=== PATIENT | female | born 1975 | race Two or more races ===

== ENCOUNTER 2025-06-06 00:41 | Inpatient (IN) | payer MEDICARE, MEDICAID, SELFPAY ==
[2025-06-06] VITALS (11 sets, daily range): BP systolic 110–157; BP diastolic 66–95; PULSE 62–134; RESP 16–24; TEMP 36.3–40.1; O2SAT 95–100; BMI 41.5; BMI 41.3
--- NOTE | 2025-06-06 00:54 | XR_ITS ---
Examination: AP chest single view Technique one AP portable semiupright chest single view Date and time: June 06, 2025 0117 hours INDICATIONS: Chest pain shortness of breath today FINDINGS: Normal heart size. Lungs are clear. The osseous structures are intact. IMPRESSION: No active disease.
--- NOTE | 2025-06-06 00:59 | PD.EDAMS ---
Altered Mental Status RME/HPI General Chief Complaint: Altered Mental Status Stated Complaint: AMS Time Seen by Provider: 06/06/25 00:52 Arrival date/time: 06/06/25 00:41 RME / HPI RME / HPI narrative: This section includes all my notes and documentations, including HPI, PE, and ED course. Morales Deng MD HPI: 49 y/o wheelchair bound female with Hx of MS and Depression presents with altered mental status. She was no acting normal at home and shouting things that made no sense. She is able to communicate headache and severe diffuse pain. No other complaints. ROS: All negative except as documented in HPI. Physical Exam: General: Alert but agitated with flailing arms and legs. Fever noted. Eyes: Conjunctivae and lids clear. EOMI. PERRL. ENT: No nasal congestion. Pharynx normal. Tympanic membrane normal bilaterally. Neck: Supple. No carotid bruit. No JVD. Heart: Sinus tachycardia noted. Lungs: No respiratory distress. Good air movement. No severe rhonchi, wheezing, rales. Chest: Equivocal tenderness, difficult to localize. Abdomen: Soft with equivocal tenderness, difficult to localize. Normal bowel sounds. No distension. No rebound or guarding. Back: No CVA tenderness. Legs: No clubbing, cyanosis, edema. Skin: Warm and dry. Neuro: Cranial Nerves II-XII grossly intact. No obvious peripheral motor deficits. I reviewed all diagnostic test results: My interpretation of the EKG is: Sinus rhythm with no acute ST?T changes. My interpretation of the chest x-ray is no acute findings. My review of the Chest/Abdomen/Pelvis CT report is: NAD. My review of the Head/Brain CT report is: NAD. Blood tests remarkable for ESR 28, lactic acid 3.2. UA showed positive nitrite, positive leukocyte Estrace, 74 RBC, 1737 WBC, and 4+ bacteria. Covid/Influenza: Negative. At this point, diagnoses include: UTI, Sepsis. Treatment here included: Vancomycin 2G, IVF, Zofran 4 mg, SoluMedrol 125 mg, Toradol 30 mg, cefepime 2 g, and vancomycin 2 g. Some improvement noted. 0329: I discussed the case with our hospitalist. About the presentation and exam and diagnostics and treatments here. And need of further care in the hospital. Will accept the patient. Morales Deng MD Related Data Home Medications ?Medication ?Instructions ?Recorded ?Confirmed glatiramer 40 mg/mL subcutaneous 40 mg SQ 3 X WEEKLY #0 ea 04/15/16 syringe (Copaxone) vortioxetine 20 mg tablet 20 mg PO QDAY #0 tabs 04/15/16 (Trintellix) Allergies Allergy/AdvReac Type Severity Reaction Status Date / Time Sulfa (Sulfonamide Allergy Severe Verified 04/15/16 22:16 Antibiotics) Review of Systems Review of Systems Systems Reviewed: All systems reviewed, normal except as documented Past Medical History Past Medical History NEUROLOGIC: Positive Multiple Sclerosis GASTROINTESTINAL: Positive Obesity PSYCHO/SOCIAL: Positive Depression Surgical History SURGICAL: Positive Section ED Exam Narrative Physical exam: Refer to HPI above Course Course Course Narrative: CXR is ordered for determining the etiology of shortness of breath. Quality Measures none Orders Category Date Time Status Bedside COVID-19 Antigen Test NOW Care 06/06/25 00:52 Active Bedside Influenza A&B Antigen Test NOW Care 06/06/25 00:52 Completed COVID-19 Screening Questionnaire NOW Care 06/06/25 04:14 Active Decision to Admit X1 Care 06/06/25 04:14 Completed EKG (ED ONLY) *Do not use* NOW Care 06/06/25 01:01 Completed Saline [Insert IV] NOW Care 06/06/25 00:52 Active Straight [In and Out Catheter] X1 Care 06/06/25 00:[address] chest abdomen pelvis wo Stat Exams 06/06/25 01:[address] head/brain wo con Stat Exams 06/06/25 01:01 Taken EKG (ED Only) Stat Exams 06/06/25 01:01 Draft XR chest 1V portable Stat Exams 06/06/25 00:54 Taken Ammonia Stat Lab 06/06/25 00:50 Completed BNP [B-Type Natriuretic Peptide] Stat Lab 06/06/25 00:50 Completed Bilirubin,Direct Stat Lab 06/06/25 00:50 Completed Blood Culture (Lab) Stat Lab 06/06/25 00:50 Received CBC Stat Lab 06/06/25 00:50 Completed CMP [Comprehensive Metabolic Panel] Stat Lab 06/06/25 00:50 Completed CRP [C-Reactive Protein] Stat Lab 06/06/25 00:50 Completed ESR [Sed Rate (ESR)] Stat Lab 06/06/25 00:50 Completed Free T4 (Free Thyroxine) Stat Lab 06/06/25 00:50 Completed HCG Qualitative,Urine Stat Lab 06/06/25 01:05 Completed HCG,Qualitative Serum Stat Lab 06/06/25 00:50 Completed Lactate (Lactic Acid) Stat Lab 06/06/25 00:50 Completed Lactic Acid, 3 HR Stat Lab 06/06/25 04:15 Ordered Lipase Stat Lab 06/06/25 00:50 Completed Magnesium Stat Lab 06/06/25 00:50 Completed Procalcitonin Stat Lab 06/06/25 00:50 Completed TSH [Thyroid Stimulating Hormone] Stat Lab 06/06/25 00:50 Completed Troponin I Stat Lab 06/06/25 00:50 Completed UA, C/S IF [Urinalysis, C/S if Indicated] Stat Lab 06/06/25 01:05 Completed Acetaminophen Ivpb [Ofirmev Inj] Med 06/06/25 00:53 Discontinued 1,000 mg in 100 ml IV X1 Cefepime Inj [Maxipime Inj] 2 gm Med 06/06/25 00:53 Discontinued SODIUM CHLORIDE 0.9% (Popper) [Ns 0.9% (P)] 50 ml IV X1 Ketorolac Inj [Toradol Inj] Med 06/06/25 00:53 Discontinued 30 mg IVP X1 ONE MethylPREDNISolone.* [SoluMEDROL Inj] Med 06/06/25 00:53 Discontinued 125 mg IVP X1 ONE Morphine Inj Med 06/06/25 01:00 Discontinued 4 mg IVP X1 ONE Ondansetron Inj [Zofran Inj] Med 06/06/25 00:53 Discontinued 4 mg IVP X1 ONE Sodium Chloride 0.9% 1000 ml [Ns] 1,000 ml Med 06/06/25 00:53 Discontinued IV 999 mls/hr Sodium Chloride 0.9% 1000 ml [Ns] 1,000 ml Med 06/06/25 01:00 Discontinued IV 999 mls/hr Sodium Chloride 0.9% 1000 ml [Ns] 1,000 ml Med 06/06/25 01:00 Discontinued IV 999 mls/hr Vancomycin Inj 2,000 mg Med 06/06/25 00:53 Discontinued Sodium Chloride 0.9% 500 ml [Ns] 500 ml IV X1 Vital Signs Vital signs: Vital Signs Temperature 99.4 F 06/06/25 00:44 Pulse Rate 134 H 06/06/25 00:44 Respiratory Rate 24 H 06/06/25 00:44 Blood Pressure 137/88 H 06/06/25 00:44 Pulse Oximetry (%) 96 06/06/25 00:44 Oxygen Delivery Method Room Air 06/06/25 00:44 Altered Mental Status MDM Narrative MDM Narrative:: Scribe Attestation: I, Sophia Gonzales, am scribing for and in the presence of Dr. Deng. Provider Notation: Although this document has been carefully reviewed, there may still be some phonetic and other typographical errors.? These errors are purely grammatical due to imperfections in the software program and should not be construed in any way to? compromise the substance of the patient's medical care during this visit. 49 y/o wheelchair bound female with Hx of MS and Depression presents with altered mental status. She was no acting normal at home and shouting things that made no sense. She is able to communicate headache and severe diffuse pain. No other complaints. Patient data External records reviewed:: [facility] previous records (No prior ED records available for review.) Clinical information provided by:: family (Sister) Social determinants that could affect healthcare access:: mental health (Depression) Patient has the following chronic illnesses:: Multiple Sclerosis, Obesity, Depression How is presenting disease/condition affected by chronic disease/condition?: exacerbated by Evaluation data The following diagnostics were reviewed and interpreted by me:: EKG tracing(s) (My interpretation of the EKG is: Sinus tachycardia (116 bpm) with nonspecific ST-T changes. Morales Deng MD) Lab and/or radiology exams considered but not ordered:: None Interpretation Summary: I reviewed all diagnostic test results: My interpretation of the EKG is: Sinus rhythm with no acute ST?T changes. My interpretation of the chest x-ray is no acute findings. My review of the Chest/Abdomen/Pelvis CT report is: NAD. My review of the Head/Brain CT report is: NAD. Blood tests remarkable for ESR 28, lactic acid 3.2. UA showed positive nitrite, positive leukocyte Estrace, 74 RBC, 1737 WBC, and 4+ bacteria. Covid/Influenza: Negative. Medications / Prescriptions Medications or Prescriptions considered but not ordered:: None Medication administrations:: Medication Administration History Discontinued Medications Cefepime HCl 2 gm/ Sodium (Chloride) 50 mls @ 100 mls/hr IV X1 ONE Stop: 06/06/25 01:22 Last Infusion: 06/06/25 02:00 Dose: Infused Documented By: Admin: 06/06/25 01:30 Dose: 100 mls/hr Documented By: NO Sodium Chloride (Ns) 1,000 mls @ 999 mls/hr IV .Q1H1M ONE Stop: 06/06/25 01:53 Last Infusion: 06/06/25 02:37 Dose: Infused Documented By: Admin: 06/06/25 01:21 Dose: 999 mls/hr Documented By: NO Vancomycin HCl 2,000 mg/ (Sodium Chloride) 500 mls @ 150 mls/hr IV X1 ONE Stop: 06/06/25 04:12 Last Admin: 06/06/25 01:35 Dose: 150 mls/hr Documented By: NO Acetaminophen (Ofirmev Inj) 1,000 mg in 100 mls @ 250 mls/hr IV X1 ONE Stop: 06/06/25 01:16 Last Infusion: 06/06/25 02:36 Dose: Infused Documented By: Admin: 06/06/25 01:21 Dose: 250 mls/hr Documented By: NO Sodium Chloride (Ns) 1,000 mls @ 999 mls/hr IV .Q1H1M ONE Stop: 06/06/25 02:00 Last Infusion: 06/06/25 04:13 Dose: Infused Documented By: Admin: 06/06/25 01:34 Dose: 999 mls/hr Documented By: NO Sodium Chloride (Ns) 1,000 mls @ 999 mls/hr IV .Q1H1M ONE Stop: 06/06/25 02:00 Last Infusion: 06/06/25 04:13 Dose: Infused Documented By: Admin: 06/06/25 01:34 Dose: 999 mls/hr Documented By: NO Ketorolac Tromethamine (Ketorolac Inj 30 Mg/Ml Vial) 30 mg IVP X1 ONE Stop: 06/06/25 00:54 Last Admin: 06/06/25 01:31 Dose: 30 mg Documented By: NO Methylprednisolone Sodium Succinate (Methylprednisolone Sod Succ 62.5 Mg/Ml 2ml Vial) 125 mg IVP X1 ONE Stop: 06/06/25 00:54 Last Admin: 06/06/25 01:22 Dose: 125 mg Documented By: NO Morphine Sulfate (Morphine Sulf Inj 10 Mg/Ml Vial) 4 mg IVP X1 ONE Stop: 06/06/25 01:01 Last Admin: 06/06/25 01:32 Dose: 4 mg Documented By: NO Ondansetron HCl (Ondansetron Inj 2 Mg/Ml Inj 2 Ml) 4 mg IVP X1 ONE; Protocol Stop: 06/06/25 00:54 Last Admin: 06/06/25 01:32 Dose: 4 mg Documented By: NO At this point, diagnoses include: UTI, Sepsis. Treatment here included: Vancomycin 2G, IVF, Zofran 4 mg, SoluMedrol 125 mg, Toradol 30 mg, cefepime 2 g, and vancomycin 2 g. Consultations Consultation(s) initiated? (list below): Yes Consultation #1 (Physician, Specialty, Details): [id number]: I discussed the case with our hospitalist. About the presentation and exam and diagnostics and treatments here. And need of further care in the hospital. Will accept the patient. Diagnosis Differential diagnosis altered mental status: alcoholic intoxication, altered mental status, delirium, dementia, hypoglycemia, hyponatremia, subarachnoid hemorrhage, sepsis and other (UTI, COVID, pneumonia, influenza, dehydration, electrolyte abnormalities) Most likely diagnosis given after review of the tests above:: Spesis, UTI. Admission Indicated Admission indicated?: indicated Explain why admission is indicated or not indicated:: Sepsis, UTI. Admission Request Was there a request for admission?: Yes Admission Attestation Admission request attestation: Discussed case with Hospitalist service regarding admission. Discussed patients ED course, exam findings, labs, and radiology results. The Hospitalist [agrees] to accept the patient for admission. Disposition Plan Disposition Plan: Admit Critical Care Time Critical Care Time Critical Care Time: Yes Total Critical Care Time (min.): 36 Attestation: Due to a high probability of clinically significant, life threatening deterioration, the patient required my highest level of preparedness to intervene emergently and I personally spent this critical care time directly and personally managing the patient. This critical care time included obtaining a history; examining the patient; ordering and review of studies; arranging urgent treatment with development of a management plan; evaluation of patient's response to treatment; frequent reassessment; and discussions with family and other providers. It was exclusive of separately billable procedures and treating other patients and teaching time. Morales Deng MD Discharge Plan Plan Patient Disposition: Admit Acute Care w/in Hospital Prescriptions/Referrals Prescriptions/Med Rec: No Action vortioxetine [Trintellix] 20 MG tablet 20 mg PO QDAY Qty: 0 glatiramer [Copaxone] 40 MG/1 ML syringe 40 mg SQ 3 X WEEKLY Qty: 0 Referrals: Temporary Provider,ED [Physician] - In 1 week Problem List Clinical Impression: Sepsis, UTI (urinary tract infection) Patient/Caregiver Discharge Instructions Print Language: Honduran Stand Alone Forms: Niya Award Info., Patient Portal Info Letter
--- NOTE | 2025-06-06 01:01 | EKG_ITS ---
[facility] Test Date: 2025-06-06 Pat Name: LOLLY SAMPSON Department: Room: - Gender: Female [employer]: : 1975 Requested By: Morales Mcneill Order Number: [id number] Reading MD: Morales Mcneill Measurements Intervals [place] Rate: 116 P: 56 [place]: 133 QRS: 71 QRSD: 85 T: 55 QT: 321 QTc: 446 Interpretive Statements SINUS TACHYCARDIA NONSPECIFIC ST & T-WAVE ABNORMALITY ABNORMAL RHYTHM ECG No previous ECG available for comparison /store/S0/[id number].pdf
--- NOTE | 2025-06-06 01:01 | XR_ITS ---
Examination: CT brain head without contrast. 2-D sagittal coronal reconstructions Date and time of exam:June 06, 2025, 0207 hours INDICATIONS: Altered mental status today COMPARISON: May 09, 2014 CTDI: vol (mGy):56.40 DLP: (mGycm):1154 Technique: Multiple CT axial sections of the brain have been obtained, 5 mm slice thickness. Contrast has not been administered. 2-D sagittal, coronal reconstructions have been obtained Low dose protocols were performed. One or more of the following dose reduction techniques were used; automated exposure control, adjustment of the mA and/or KV according to patient size, use of iterative reconstruction technique. Findings: No significant ventricular enlargement. Multiple abnormal low density areas in the parietal lobes, for instance axial images 18 through 22 Intra-axial or extra-axial hemorrhage density is not seen. No mass effect or midline shift Basal cisterns are not remarkable. Fourth ventricle is midline. Cranial vault intact. Impression: Negative for acute hemorrhage, mass effect or midline shift Multiple abnormal low-density areas in the parietal lobes as above, differential would include demyelinating disease, areas of chronic ischemic change Consider brain MRI MRA without contrast follow-up
--- NOTE | 2025-06-06 01:01 | XR_ITS ---
Examination: CT chest, without intravenous contrast. CT abdomen, without intravenous contrast. CT pelvis, without intravenous contrast. 2-D sagittal and coronal reconstructions. 3-D reconstructions. Date and time of exam:June 06, 2025 0208 hours INDICATIONS: Chest pain and shortness of breath abdominal pain today CTDI vol (mgy) 21.21. DLP (MGycm)1529. Technique: Multiple CT images, 3.0 mm slice thickness, obtained chest, abdomen, pelvis, with the high-resolution 64 slice scanner.. Sagittal and coronal 2-D reconstructions are obtained. 3-D reconstructions Low dose protocols were performed. One or more of the following dose reduction techniques were used; automated exposure control, adjustment of the mA and/or KV according to patient size, use of iterative reconstruction technique. Findings: No thoracic aortic aneurysmal dilatation Pulmonary artery segments are not enlarged. Trace pericardial effusion. No mediastinal lymphadenopathy. No pneumonia, pulmonary edema or pleural disease Fatty infiltration throughout the liver Possible thickening of the gallbladder wall Spleen not enlarged No pancreatic or adrenal mass No renal or ureteral calculi, no hydronephrosis Aorta normal size Normal appendix. No bowel obstruction Anteverted uterus Urinary Gonzales catheter with urinary bladder wall thickening and pericystic inflammatory change Moderate osteopenia IMPRESSION: No pneumonia, pulmonary edema or pleural disease Recommend hepatobiliary sonography to exclude gallbladder wall thickening Significant cystitis pattern
[2025-06-06 01:18] LABS: Basophils # (Auto) 0.0 Thou/mm3 (0.0-0.2); Basophils % (Auto) 0 % (0-2.5); Eosinophils # (Auto) 0.1 Thou/mm3 (0.0-0.5); Eosinophils % (Auto) 1 % (0-10); Hematocrit 43.1 % (36.0-46.0); Hemoglobin 14.2 g/dL (12.0-16.0); Immature Granulocytes Auto 0.03 Thou/mm3 (0.00-0.00); Lactate (Lactic Acid) 3.2 mMol/L (0.4-2.0); Lymphocytes # (Auto) 0.9 Thou/mm3 (1.0-4.8); Lymphocytes % (Auto) 11 % (10-50); Mean Corpuscular HGB Conc 32.9 g/dl (31.0-37.0); Mean Corpuscular Hemoglobin 29.6 pg (25.0-35.0); Mean Corpuscular Volume 90 fL (80-100); Monocytes # (Auto) 0.1 Thou/mm3 (0.0-0.8); Monocytes % (Auto) 1 % (0-12); Neutrophils # (Auto) 7.3 Thou/mm3 (1.8-7.7); Neutrophils % (Auto) 87 % (37-80); Nucleated Red Blood Cell # 0.00 Thou/mm3 (0.00-0.00); Nucleated Red Blood Cell % 0 /100 WBC (0); Platelet Count 269 Thou/mm3 (140-440); RDW Standard Deviation 43.8 fL (36.4-46.3); Red Blood Count 4.79 Miln/mm3 (4.00-5.20); White Blood Count 8.4 Thou/mm3 (3.6-11.0)
[2025-06-06] MEDS: SODIUM CHLORIDE 0.9% 1000 ML 1,000 ML 999 ML IV ×3 (01:21→01:34)
[2025-06-06] MEDS: ACETAMINOPHEN IVPB 1,000 MG/100 ML VIAL 250 MG IV (01:21)
[2025-06-06] MEDS: MethylPREDNISolone SOD SUCC 62.5 MG/ML 2ML VIAL 125 MG IVP (01:22)
[2025-06-06 01:23] LABS: Collection Type, Urine Clean Catch; HCG Qualitative,Urine Negative
[2025-06-06 01:25] LABS: Bacteria,Urine 4+; Bilirubin,Urine Negative (Negative); Blood,Urine 2+ (Negative); Color,Urine Yellow (Lt Yel-Yel); Culture Indicated,Urine Contaminated; Glucose, Urine Negative (Negative); Ketones,Urine Negative (Negative); Leukocyte Esterase,Urine Positive (Negative); Nitrite,Urine Positive (Negative); PH,Urine 8.0 (5.0-7.0); Protein,Urine 2+ (Neg - Trace); RBC,Urine 74 /hpf (0-3); Specific Gravity,Urine 1.018 (1.001-1.035); Squamous Epithelial Cell,Urine 22 /hpf (0-5); Urobilinogen,Urine Negative mg/dL (0.0-1.0); WBC,Urine 1737 /hpf (0-5)
[2025-06-06 01:25] LABS: Sed Rate (ESR) 28 mm/hr (0-20)
[2025-06-06 01:26] LABS: Clarity,Urine Turbid (Clear/Hazy)
[2025-06-06] MEDS: CEFEPIME INJ 2 GM in SODIUM CHLORIDE 0.9% (Popper) 50 ML IV ×4 (01:30→21:03)
[2025-06-06] MEDS: KETOROLAC INJ 30 MG/ML VIAL IVP (01:31)
[2025-06-06] MEDS: MORPHINE SULF INJ 10 MG/ML VIAL 4 MG IVP (01:32)
[2025-06-06] MEDS: ONDANSETRON INJ 2 MG/ML INJ 2 ML 4 MG IVP (01:32)
[2025-06-06 01:35] LABS: HCG,Qualitative Serum Negative
[2025-06-06] MEDS: Vancomycin Inj 2,000 MG in SODIUM CHLORIDE 0.9% 500 ML 500 ML 150 MG IV (01:35)
[2025-06-06 01:41] LABS: Ammonia < 10 uMol/L (11-32)
[2025-06-06 01:43] LABS: B-Type Natriuretic Peptide < 20 pg/mL (0-100)
[2025-06-06 02:09] LABS: Alanine Aminotransferase 23 U/L (10-49); Albumin, Serum 4.8 gm/dL (3.5-5.0); Albumin/Globulin Ratio 1.8 (1.2-2.2); Alkaline Phosphatase 89 U/L (46-116); Anion Gap 13 (7-16); Aspartate Amino Transferase 26 U/L (0-34); BUN/Creatinine Ratio 14 Ratio (12-20); Bilirubin,Direct 0.2 mg/dL (0.0-0.3); Bilirubin,Total 0.8 mg/dL (0.3-1.2); Blood Urea Nitrogen 11 mg/dL (9-23); C-Reactive Protein 0.7 mg/dL (0.0-0.9); Calcium 9.3 mg/dL (8.3-10.6); Calcium (Corrected) 9.3 mg/dL (8.5-10.1); Carbon Dioxide 23.6 mMol/L (20.0-31.0); Chloride 106 mMol/L (98-107); Creatinine (Component) 0.8 mg/dL (0.6-1.3); Estimated Creatinine Clearance 110.5 mL/min (>60); Free T4 (Free Thyroxine) 1.34 ng/dL (0.89-1.76); Globulin 2.6 gm/dL (2.3-3.5); Glucose 141 mg/dL (74-106); Lipase 43 U/L (12-53); Magnesium 2.0 mg/dL (1.6-2.6); Osmolality,Calculated 286 (275-295); Potassium 3.8 mMol/L (3.4-5.1); Sodium 143 mMol/L (136-145); Thyroid Stimulating Hormone 1.09 uIU/mL (0.55-4.78); Total Protein 7.4 gm/dL (5.7-8.2); Troponin I < 0.002 ng/mL (0.0-0.045); eGFR > 60 See Note
[2025-06-06 02:12] LABS: Procalcitonin 0.24 ng/ml (0.0-0.49)
--- NOTE | 2025-06-06 02:41 | PRELIM_ITS ---
CT scan of the head without intravenous contrast (axial sections with sagittal and coronal reformats). June 06, 2025 0206 hours Clinical History: AMS Comparison: No prior study is available for comparison. Findings: No evidence of intracranial hemorrhage, mass effect or midline shift. There are patchy hypodensities in the periventricular and subcortical white matter in bilateral frontoparietal lobes, which may represent sequelae of demyelinating etiology or chronic ischemia. The ventricles and CSF spaces are unremarkable. The calvarium is unremarkable.There is mild mucosal thickening in the left maxillary sinus. The mastoid air cells and the other visualized paranasal sinuses are clear. Impression: 1. No evidence of intracranial hemorrhage, mass effect or midline shift. 2. Patchy hypodensities in the periventricular and subcortical white matter in bilateral frontoparietal lobes, which may represent sequelae of demyelinating etiology or chronic ischemia. 3. Other findings as described above. Suggest clinical correlation, comparison with prior study and further assess with MRI if clinically indicated. Report Electronically Signed By: Walter Huitron 06/06/2025 2:40:37 AM [EST]
--- NOTE | 2025-06-06 03:10 | PRELIM_ITS ---
CT scan of the chest, abdomen and pelvis without intravenous contrast (axial sections with sagittal and coronal reformats) June 06, 2025 0208 hours Clinical History: AMS, shortness of breath, chest pain and abdominal pain Comparison: None Findings: The evaluation is limited by respiratory motion. Dependent and streaky atelectasis is seen at the lung bases. There is no pleural effusion or pneumothorax. The thoracic aorta demonstrates atheromatous calcification without evidence of aneurysm. No evidence of mediastinal mass or lymphadenopathy. There is a small pericardial effusion. There is hepatomegaly with fatty infiltration. Dependent hyperdensity is identified within the gallbladder, which may represent sludge. No evidence of renal/ureteric calculus or hydroureteronephrosis. The spleen, pancreas, adrenals and kidneys are unremarkable on this noncontrast study. No evidence of bowel obstruction. The appendix is within normal limits (images 235 - 250/342). There are occasional colonic diverticula without evidence of diverticulitis. There is divarication of the rectus muscle with a fat containing umbilical hernia. The urinary bladder is partially distended and shows mild wall thickening; possibility of cystitis cannot be excluded. The uterus and adnexa are unremarkable. There is no abdominal aortic aneurysm. There is no free fluid or free air. Mild degenerative changes are identified in the spine. Please note that evaluation of soft tissue/vascular structures and bowel loops is limited due to absence of IV and oral contrast. Impression: 1. No evidence of segmental lung consolidation or pleural effusion/pneumothorax. 2. No evidence of bowel obstruction. 3. Hepatomegaly with fatty infiltration. 4. Partially distended urinary bladder with mild wall thickening; possibility of cystitis cannot be excluded. 5. Other findings as described above. Suggest clinical correlation and follow up accordingly. Report Electronically Signed By: Walter Huitron 06/06/2025 3:10:42 AM [EST]
[2025-06-06 04:15] LABS: Reflex Lactate? Y
--- NOTE | 2025-06-06 04:28 | ESHP_ITS ---
Documentation for date of: 06/06/25 HPI History of Present Illness History of present illness: 49-year-old wheelchair-bound female with history of multiple sclerosis (MS) and depression presents from home with acute altered mental status. Per sister, patient was acting abnormally, shouting nonsensical statements, and appeared confused earlier today. She also developed generalized shaking, muscle cramping, and repeated episodes of vomiting. Onset was around 11:00 AM. Prior to this, she was at her baseline mentation and functional status. At home, a forehead thermometer recorded a temperature of ~101?F. She had no recent MS flares in the past 4?5 years and has been adherent to Ocrevus infusions. She reported feeling different from her typical MS symptoms. No chest pain, shortness of breath, neck stiffness, or new focal neurological deficits. No dysuria or urinary frequency noted, but she wears adult diapers and spends most of the day in her wheelchair. No indwelling urinary catheter. On arrival to ED, she was febrile to 104.2?F, tachycardic to 134 bpm, BP 157/88. Oxygen requirement noted on nasal cannula. She was initially altered but is now back to her baseline mentation after treatment in ED. Currently has an indwelling Gonzales catheter placed in ED. ROS: Positive: Fever, vomiting, generalized weakness, AMS (resolved), suprapubic tenderness. Negative: Dysuria, flank pain, diarrhea, chest pain, SOB, headache, photophobia, seizures. PMH: * Multiple sclerosis; wheelchair-bound, chronic paraplegia * Depression PSH: * None reported Home Medications: * Ocrevus infusion (schedule per neuro) * Baclofen * Vitamin D * [Depression medication unknown] med recs pending Allergies: * Sulfa drugs Family History: * Cancer, arthritis, hypertension, DM Exam Vital Signs Temp Pulse Resp BP Pulse Ox O2 Del Method O2 Flow Rate 98.3 F 100 20 130/94 H 95 Nasal Cannula 2 06/06/25 04:14 06/06/25 04:14 06/06/25 04:14 06/06/25 04:14 06/06/25 04:18 06/06/25 04:14 06/06/25 04:18 Narrative Exam General: Alert, oriented ?3, no acute distress HEENT: PERRL, EOMI, no meningismus Neck: Supple, no lymphadenopathy, no JVD CV: Tachycardic, regular rhythm, no murmurs/rubs/gallops Lungs: Clear to auscultation bilaterally, no wheezing/rhonchi/rales Abdomen: Soft, mild suprapubic tenderness, no guarding or rebound Extremities: 4+ pitting edema in bilateral lower extremities Neuro: * Complete loss of motor function waist down (baseline) * RUE: 1/5 strength (baseline) * LUE: 4/5 strength (baseline) * CN II?XII intact, sensation grossly intact Skin: Warm, dry, no rash Psych: Cooperative, normal mood and affect Results: Labs 06/06/25 04:40 06/06/25 04:40 Labs: Short CBC 06/06/25 Range/Units 00:50 WBC 8.4 (3.6-11.0) Thou/mm3 Hgb 14.2 (12.0-16.0) g/dL Hct 43.1 (36.0-46.0) % Plt Count 269 (140-440) Thou/mm3 BMP 06/06/25 00:50 Sodium 143 Potassium 3.8 Chloride 106 Carbon Dioxide 23.6 BUN 11 Creatinine 0.8 Glucose 141 H Calcium 9.3 Cardiac Enzymes 06/06/25 Range/Units 00:50 Troponin I < 0.002 (0.0-0.045) ng/mL Liver Function 06/06/25 Range/Units 00:50 Total Bilirubin 0.8 (0.3-1.2) mg/dL Direct Bilirubin 0.2 (0.0-0.3) mg/dL AST 26 (0-34) U/L ALT 23 (10-49) U/L Alkaline Phosphatase 89 (46-116) U/L Albumin 4.8 (3.5-5.0) gm/dL Urine 06/06/25 Range/Units 01:05 Urine Color Yellow (Lt Yel-Yel) Urine Clarity Turbid A (Clear/Hazy) Urine pH 8.0 H (5.0-7.0) Ur Specific [place] 1.018 (1.001-1.035) Urine Protein 2+ A (Neg - Trace) Urine Glucose (UA) Negative (Negative) Quality Measures Quality Measures VTE prophylaxis Medications Home Medications and Allergies Home Medications ?Medication ?Instructions ?Recorded ?Confirmed ?Type glatiramer 40 mg/mL subcutaneous 40 mg SQ 3 X WEEKLY # 0 ea 04/15/16 History syringe ([place]) vortioxetine 20 mg tablet 20 mg PO QDAY #0 tabs History (Trintellix) Allergies Allergy/AdvReac Type Severity Reaction Status Date / Time Sulfa (Sulfonamide Allergy Severe Verified 04/15/16 22:16 Antibiotics) Visit Medications Acetaminophen (Acetaminophen 325 Mg Tablet) 650 mg PO Q6H PRN PRN Reason: Fever >101.5 Stop: 07/06/25 04:11 Acetaminophen (Acetaminophen 325 Mg Tablet) 650 mg PO Q6H PRN PRN Reason: PAIN SCALE 1-3 (mild Stop: 07/06/25 04:11 Hydrocodone Bitart/Acetaminophen (Hydrocodone/Apap 5/325 Tablet) 1 tab PO Q4HR PRN PRN Reason: PAIN SCALE 4-6 (Moderate Stop: 06/11/25 04:11 Enoxaparin Sodium (Enoxaparin Sod Inj 40 Mg/0.4 Ml Syringe) 40 mg SC QDAY FEMI Stop: 06/20/25 08:59 Sodium Chloride (Ns) 1,000 mls @ 100 mls/hr IV .Q10H FEMI Stop: 07/06/25 04:14 Cefepime HCl 2 gm/ Sodium (Chloride) 50 mls @ 100 mls/hr IV Q8HR FEMI Stop: 06/13/25 05:59 Ondansetron HCl (Ondansetron Inj 2 Mg/Ml Inj 2 Ml) 4 mg IVP Q6H PRN; Protocol PRN Reason: NAUSEA OR VOMITING Stop: 07/06/25 04:11 Pantoprazole Sodium (Pantoprazole 40 Mg Tablet) 40 mg PO QDAY FEMI Stop: 07/06/25 08:59 Sennosides (Senna Tablet) 1 tab PO QDAY PRN; Protocol PRN Reason: constipation Stop: 07/06/25 04:11 Discontinued Medications Cefepime HCl 2 gm/ Sodium (Chloride) 50 mls @ 100 mls/hr IV X1 ONE Stop: 06/06/25 01:22 Last Infusion: 06/06/25 02:00 Dose: Infused Sodium Chloride (Ns) 1,000 mls @ 999 mls/hr IV .Q1H1M ONE Stop: 06/06/25 01:53 Last Infusion: 06/06/25 02:37 Dose: Infused Vancomycin HCl 2,000 mg/ (Sodium Chloride) 500 mls @ 150 mls/hr IV X1 ONE Stop: 06/06/25 04:12 Last Admin: 06/06/25 01:35 Dose: 150 mls/hr Acetaminophen (Ofirmev Inj) 1,000 mg in 100 mls @ 250 mls/hr IV X1 ONE Stop: 06/06/25 01:16 Last Infusion: 06/06/25 02:36 Dose: Infused Sodium Chloride (Ns) 1,000 mls @ 999 mls/hr IV .Q1H1M ONE Stop: 06/06/25 02:00 Last Infusion: 06/06/25 04:13 Dose: Infused Sodium Chloride (Ns) 1,000 mls @ 999 mls/hr IV .Q1H1M ONE Stop: 06/06/25 02:00 Last Infusion: 06/06/25 04:13 Dose: Infused Ketorolac Tromethamine (Ketorolac Inj 30 Mg/Ml Vial) 30 mg IVP X1 ONE Stop: 06/06/25 00:54 Last Admin: 06/06/25 01:31 Dose: 30 mg Methylprednisolone Sodium Succinate (Methylprednisolone Sod Succ 62.5 Mg/Ml 2ml Vial) 125 mg IVP X1 ONE Stop: 06/06/25 00:54 Last Admin: 06/06/25 01:22 Dose: 125 mg Morphine Sulfate (Morphine Sulf Inj 10 Mg/Ml Vial) 4 mg IVP X1 ONE Stop: 06/06/25 01:01 Last Admin: 06/06/25 01:32 Dose: 4 mg Ondansetron HCl (Ondansetron Inj 2 Mg/Ml Inj 2 Ml) 4 mg IVP X1 ONE; Protocol Stop: 06/06/25 00:54 Last Admin: 06/06/25 01:32 Dose: 4 mg Assessment & Plan Plan 49F w/ PMH MS (wheelchair-bound, chronic paraplegia) & depression p/w fever (Tmax 104.2), transient AMS, vomiting; UA & CT bladder wall thickening -> acute complicated UTI w/ sepsis, lactate 3.2; now AO?4, on NC, started on cefepime 2 g q8h, cultures pending. #Sepsis secondary to #Urinary tract infection Meets sepsis criteria with fever (Tmax 104.2?F), tachycardia, AMS, and lactate 3.2 mmol/L. Most likely urinary source given UA with pyuria, bacteriuria, hematuria, suprapubic tenderness, and CT finding of bladder wall thickening. Gonzales was placed in ED for management, not present prior to arrival. Plan: * Continue cefepime 2 g IV q8h for broad gram-negative coverage, including Pseudomonas * Maintain MAP >65 mmHg; monitor for hypotension * Repeat lactate q4?6h until <2 mmol/L * Follow blood and urine cultures; narrow antibiotics per sensitivities * Monitor for urinary retention after Gonzales removal * Strict I/O, daily weights * Antipyretics PRN * Consider ID consult if no improvement within 48h # Toxic metabolic encephalopathy Acute AMS at presentation, now resolved after fluids, antipyretics, and antibiotics. Most likely secondary to sepsis from urinary source. CT brain without acute findings; no focal neuro deficits beyond MS baseline. Plan: * Treat underlying infection as above * Avoid sedatives unless absolutely necessary #Multiple sclerosis Wheelchair-bound with baseline paraplegia (RUE 1/, LUE 4/). No flares in past 4?5 years. Plan: * Continue baclofen * Ocrevus infusion due next week * Monitor for new deficits; neuro consult if any change #Localized edema Chronic BLE edema, likely due to immobility +/- venous insufficiency. Plan: * Elevate legs * Monitor fluid status #Dehydration Due to vomiting, fever, poor PO intake; improved with IV fluids in ED. Plan: * Continue maintenance IV fluids until oral intake adequate * Daily BMP * Replete electrolytes PRN Health Maintenance: Disposition: Admit to medicine, telemetry Feeding: Regular diet as tolerated Thromboprophylaxis: Enoxaparin 40 mg SC daily GI prophylaxis: ppi Code Status: Full ----- Plan discussed with attending physician Dr. Angélica Mcconnell MD PGY-1 Internal Medicine Attending Provider Attestation/Addendum I attest that I was physically present for the evaluation, physical examination, lab and imaging review of the patient with the residents. I discussed the case with the residents and agree with the findings and plans of care as documented above. After examination of the patient and review of the clinical data I feel that this patient needs admission to the hospital for further treatment/evaluation. Patient is a 49 years old female with past medical history of multiple sclerosis, and depression who presented to the ED with complaint of altered mental status. Patient is wheelchair-bound at baseline. As per her sister at baseline, patient appeared confused and started acting strange at home. She was also having shaking, muscle cramping and episodes of vomiting. Denied any dysuria or urinary frequency, shortness of breath. She noted to have fever at home with temperature around 101 ?F. In the ED, she was febrile with temperature of 104.2 ?F, was tachycardic with heart rate of 134, tachypneic with respiratory rate of 24 and mildly hypertensive blood pressure of 137/88. Lab results show WBC of 14.0 with neutrophilic predominance. ESR was 28 and lactic acid 3.2. Urinalysis was done, showed 1737 WBCs, positive leukocyte esterase and nitrite, turbid urine with 4+ bacteria. Chest x-ray was done did not show any infiltrates, head CT was negative for acute hemorrhage, mass effect or midline shift. CT abdomen/pelvis showed partially distended urinary bladder with mild wall thickening possibility of cystitis, hepatomegaly with fatty infiltration. Patient's mentation had improved at the time of examination, alert and oriented, able to answer questions and follow commands appropriately. She had suprapubic tenderness, bilateral pedal edema. We will admit the patient for management of sepsis secondary to UTI. We will start her on broad-spectrum IV antibiotics with cefepime 2 grams every 8 hours. Patient received IV fluid bolus in the ED, we will continue with gentle IV hydration. Cultures have been ordered. Harley Lindsay MD
[2025-06-06 04:56] LABS: Lactic Acid, 3 HR 1.2 mMol/L (0.4-2.0)
[2025-06-06 05:00] LABS: Basophils # (Auto) 0.0 Thou/mm3 (0.0-0.2); Basophils % (Auto) 0 % (0-2.5); Eosinophils # (Auto) 0.0 Thou/mm3 (0.0-0.5); Eosinophils % (Auto) 0 % (0-10); Hematocrit 39.5 % (36.0-46.0); Hemoglobin 13.2 g/dL (12.0-16.0); Immature Granulocytes Auto 0.04 Thou/mm3 (0.00-0.00); Lymphocytes # (Auto) 0.6 Thou/mm3 (1.0-4.8); Lymphocytes % (Auto) 4 % (10-50); Mean Corpuscular HGB Conc 33.4 g/dl (31.0-37.0); Mean Corpuscular Hemoglobin 30.2 pg (25.0-35.0); Mean Corpuscular Volume 90 fL (80-100); Monocytes # (Auto) 0.5 Thou/mm3 (0.0-0.8); Monocytes % (Auto) 4 % (0-12); Neutrophils # (Auto) 12.8 Thou/mm3 (1.8-7.7); Neutrophils % (Auto) 92 % (37-80); Nucleated Red Blood Cell # 0.00 Thou/mm3 (0.00-0.00); Nucleated Red Blood Cell % 0 /100 WBC (0); Platelet Count 237 Thou/mm3 (140-440); RDW Standard Deviation 43.6 fL (36.4-46.3); Red Blood Count 4.37 Miln/mm3 (4.00-5.20); White Blood Count 14.0 Thou/mm3 (3.6-11.0)
[2025-06-06 05:21] LABS: Anion Gap 11 (7-16); BUN/Creatinine Ratio 12 Ratio (12-20); Blood Urea Nitrogen 7 mg/dL (9-23); Calcium 8.4 mg/dL (8.3-10.6); Carbon Dioxide 23.6 mMol/L (20.0-31.0); Chloride 110 mMol/L (98-107); Creatinine (Component) 0.6 mg/dL (0.6-1.3); Estimated Creatinine Clearance 147.4 mL/min (>60); Glucose 152 mg/dL (74-106); Magnesium 2.0 mg/dL (1.6-2.6); Osmolality,Calculated 289 (275-295); Potassium 3.4 mMol/L (3.4-5.1); Sodium 145 mMol/L (136-145); eGFR > 60 See Note
[2025-06-06] MEDS: SODIUM CHLORIDE 0.9% 1000 ML 1,000 ML 100 ML IV ×2 (06:07→15:00)
[2025-06-06] MEDS: ENOXAPARIN SOD INJ 40 MG/0.4 ML SYRINGE SC (08:59)
[2025-06-06] MEDS: PANTOPRAZOLE 40 MG TABLET PO (09:00)
--- NOTE | 2025-06-06 10:46 | CHAP ---
Patient expressed gratitude for visit and prayer.
--- NOTE | 2025-06-06 15:01 | PC.SS ---
Patient Florencia Bean is a 49 Year old female admitted for AMS and Fever. SS met with patient at bedside to discuss discharge plan and verify demographic information. Patient reports she lives at home with her , Sean Cruz who she reports is surrogate decision maker, [phone]. Patient is wheelchair-bound with history of multiple sclerosis (MS) and depression. Patient reports her assists her with her ADL's. PCP is Josy Killian and Pharmacy of choice is [facility]. At time of discharge the patient wishes to return back home. Family will provide transportation. Next of kin: , Sean Cruz Discharge Plan: Home
--- NOTE | 2025-06-06 16:20 | PD.RESEVENT ---
Documentation for date of: 06/06/25 Event Note Event Note: Rapid Response Room: 266 Time: Reason for Call: Patient Presentation: Events: Assessment: New orders:
--- NOTE | 2025-06-06 21:07 | ESPR_ITS ---
<Statement entered by Micky Cheatham MD - 06/08/25 21:08> Patient was examined and case was reviewed with team including attending physician. Note reviewed, I agree with most of its contents and agree with the patient's care. Micky Cheatham MD PGY-2 Documentation for date of: 06/06/25 Subjective Subjective Interval history: Patient was seen in emergency department this morning. Patient is alert and oriented x3. Patient reported that previous multiple sclerosis flares typically began with weakness in the right toe, progressed up the right leg, and then spread to the left leg. Patient has not experienced a flare in the past five years. She is currently receiving Ocrevus infusions for multiple sclerosis, with her next infusion scheduled for next week. No complaints at this time. Exam Vital Signs Temp Pulse Resp BP Pulse Ox O2 Del Method O2 Flow Rate 97.7 F 62 16 110/66 99 Room Air 3 06/06/25 20:00 06/06/25 20:00 06/06/25 20:00 06/06/25 20:00 06/06/25 20:00 06/06/25 20:00 06/06/25 16:00 Narrative Exam Physical Exam General: Awake and in no acute distress. Conversational and non-toxic appearing. HEENT: Normocephalic, atraumatic, mucous membranes moist. Heart: Regular rate and rhythm, no murmurs. Lungs: Clear to auscultation with no wheezing or crackles. Abdomen: Soft, nondistended, nontender. No guarding or rebound tenderness. Mild suprapubic tenderness. Neurologic: Alert and oriented x3, complete loss of motor function waist down (baseline). Extremities: 4+ pitting edema in bilateral lower extremities. Skin: No rash or ecchymoses. Objective Labs 06/07/25 04:39 06/07/25 04:39 Labs: Laboratory Results - last 24 hr 06/06/25 06/06/25 06/06/25 00:50 01:05 04:40 WBC 8.4 14.0 H D RBC 4.79 4.37 Hgb 14.2 13.2 Hct 43.1 39.5 MCV 90 90 MCH 29.6 30.2 MCHC 32.9 33.4 RDW Std Deviation 43.8 43.6 Plt Count 269 237 D Neut % (Auto) 87 H 92 H Lymph % (Auto) 11 4 L [place] % (Auto) 1 4 Eos % (Auto) 1 0 Baso % (Auto) 0 0 Neut # (Auto) 7.3 12.8 H Lymph # (Auto) 0.9 L 0.6 L [place] # (Auto) 0.1 0.5 Eos # (Auto) 0.1 0.0 Baso # (Auto) 0.0 0.0 Immature Gran # (Auto) 0.03 H 0.04 H Absolute Nucleated RBC 0.00 0.00 Immature Gran % 0 0 Nucleated RBC % 0 0 ESR 28 H Sodium 143 145 Potassium 3.8 3.4 Chloride 106 110 H Carbon Dioxide 23.6 23.6 Anion Gap 13 11 BUN 11 7 L Creatinine 0.8 0.6 Estim Creat Clear Calc 110.5 147.4 eGFR > 60 > 60 BUN/Creatinine Ratio 14 12 Glucose 141 H 152 H Calculated Osmolality 286 289 Lactic Acid 3.2 H 1.2 Calcium 9.3 8.4 Corrected Calcium 9.3 Magnesium 2.0 2.0 Total Bilirubin 0.8 Direct Bilirubin 0.2 AST 26 ALT 23 Alkaline Phosphatase 89 Ammonia < 10 L Troponin I < 0.002 C-Reactive Prot, Quant 0.7 B-Natriuretic Peptide < 20 Total Protein 7.4 Albumin 4.8 Globulin 2.6 Albumin/Globulin Ratio 1.8 Lipase 43 Procalcitonin 0.24 TSH 1.09 Free T4 1.34 HCG, Qual Negative Ur Collection Type Clean Catch Urine Color Yellow Urine Clarity Turbid A Urine pH 8.0 H Ur Specific [place] 1.018 Urine Protein 2+ A Urine Glucose (UA) Negative Urine Ketones Negative Urine Blood 2+ A Urine Nitrite Positive Urine Bilirubin Negative Urine Urobilinogen (Auto) Negative Ur Leukocyte Esterase Positive Urine RBC 74 H Urine WBC 1737 H Ur Squamous Epith Cells 22 H Urine Bacteria 4+ A Ur Culture Indicated? Contaminated Urine HCG, Qual Negative Quality Measures Quality Measures VTE prophylaxis Assessment & Plan Assessment Current Active Medications: Generic Name Dose Route Start Last Admin Trade Name Freq PRN Reason Stop Dose Admin Acetaminophen 650 mg 06/06/25 04:12 Acetaminophen 325 Mg Tablet PO 07/06/25 04:11 Q6H PRN Fever >101.5 Acetaminophen 650 mg 06/06/25 04:12 Acetaminophen 325 Mg Tablet PO 07/06/25 04:11 Q6H PRN PAIN SCALE 1-3 (mild Hydrocodone Bitart/Acetaminophen 1 tab 06/06/25 04:12 Hydrocodone/Apap 5/325 Tablet PO 06/11/25 04:11 Q4HR PRN PAIN SCALE 4-6 (Moderate Enoxaparin Sodium 40 mg 06/06/25 09:00 06/06/25 08:59 Enoxaparin Sod Inj 40 Mg/0.4 Ml Syringe SC 06/20/25 08:59 40 mg QDAY FEMI Administration Sodium Chloride 1,000 mls @ 100 mls/hr 06/06/25 04:15 06/06/25 15:00 Ns IV 07/06/25 04:14 100 mls/hr .Q10H FEMI Administration Cefepime HCl 2 gm/ Sodium 50 mls @ 100 mls/hr 06/06/25 14:00 06/06/25 21:03 Chloride IV 06/13/25 13:59 100 mls/hr Q8HR FEMI Administration Ondansetron HCl 4 mg 06/06/25 04:12 Ondansetron Inj 2 Mg/Ml Inj 2 Ml IVP 07/06/25 04:11 Q6H PRN NAUSEA OR VOMITING Protocol Pantoprazole Sodium 40 mg 06/06/25 09:00 06/06/25 09:00 Pantoprazole 40 Mg Tablet PO 07/06/25 08:59 40 mg QDAY FEMI Administration Sennosides 1 tab 06/06/25 04:12 Senna Tablet PO 07/06/25 04:11 QDAY PRN constipation Protocol Plan 49 year-old female with multiple sclerosis (wheelchair-bound, chronic paraplegia) and depression, presented with altered mental status likely secondary to complicated UTI with bladder wall thickening on CT, now back to baseline and improving on antibiotics. #Infectious Encephalopathy (resolved) #Sepsis #Complicated Urinary Tract Infection Acute altered mental status at presentation, resolved after fluids, antipyretics and antibiotic initiation. SIRS positive with tachycardia, leukocytosis, fever 104.2F. Most likely urinary source given UA with pyuria, bacteriuria, hematuria, suprapubic tenderness. CT abd/pelvis: Urinary bladder wall thickening and pericystic inflammatory change. Gonzales was placed in ED for management, not present prior to arrival. Lactate 3.2 --> 1.2 Plan: - Continue Cefepime 2 g IV - Maintain MAP >65 mmHg; monitor for hypotension - Follow blood and urine cultures; narrow antibiotics per sensitivities. - Reassess daily for ongoing need for Gonzales catheter. - Monitor for urinary retention after Gonzales removal. - Antipyretics PRN. - Consider ID consult if no improvement within 48h. #Leukocytosis WBC 8.4 --> 14.0 (uptrending) Likely related to urinary tract infection. Fever resolved. Plan - Monitor daily CBC. - Continue Cefepime 2g IV. #Hyperglycemia Glucose 141 --> 152 Plan - Pending hemoglobin A1c. - Continue to monitor and check blood glucose. #Hematuria Urine RBC 74 Likely due to UTI Plan - Repeat UA to confirm resolution. - Refer for outpatient urology evaluation. #Multiple sclerosis Wheelchair-bound with baseline paraplegia (RUE 11/03, LUE 4/). No flares in past 5 years. Plan: - Ocrevus infusion due next week. - Monitor for new deficits; neuro consult if any change. #Localized edema Chronic BLE edema, likely due to immobility +/- venous insufficiency. Plan: - Elevate legs. - Monitor fluid status. #Dehydration Due to vomiting, fever, poor PO intake; improved with IV fluids in ED. Plan: - Continue maintenance IV fluids until oral intake adequate. - Daily BMP. - Replete electrolytes PRN. #Depression - Continue home medication: Trintellix 20mg daily. Health Maintenance: Disposition: Admit to medicine, telemetry Feeding: Regular diet as tolerated Thromboprophylaxis: Enoxaparin 40 mg SC daily GI prophylaxis: PPI Code Status: Full Case discussed with my senior resident Dr. Anthony Cheatham and my attending Dr. Edmonds. Vince Pennington DO Attending Provider Attestation/Addendum I have examined the patient, reviewed labs and imaging findings, discussed the case with the resident(s), and reviewed entered orders. I agree with the plan of care as outlined in this note, with these additional summaries/recommendations: Patient seen at bedside. Patient admitted overnight for sepsis secondary to urinary tract infection with endorgan damage of encephalopathy. Lactic acidosis now resolved. Encephalopathy resolved. Patient receiving IV antibiotics and cultures pending. Cultures preliminarily showing GPC's and GNR's 2 out of 2. Add vancomycin to regimen. Continue Tylenol as needed for fever. Patient also has history of multiple sclerosis and CT head did reveal multiple abnormal low- density areas in the parietal lobes although patient does not appear to be in MS exacerbation at this time. She denies any deficits and mental status is back to baseline and no steroids needed at this time. Continue outpatient ocrevus for MS management. Patient updated on the plan and agreement. All questions answered to satisfaction. Please see residents note for additional details and management. Dr. Grey MD
[2025-06-07] VITALS (9 sets, daily range): BP systolic 113–149; BP diastolic 64–90; PULSE 67–84; RESP 17–21; TEMP 36.2–36.8; O2SAT 93–99
[2025-06-07] MEDS: SODIUM CHLORIDE 0.9% 1000 ML 1,000 ML 100 ML IV (03:43)
[2025-06-07] MEDS: CEFEPIME INJ 2 GM in SODIUM CHLORIDE 0.9% (Popper) 50 ML IV (05:11)
[2025-06-07] MEDS: BACLOFEN 10 MG TABLET 20 MG PO ×3 (05:12→21:07)
[2025-06-07 06:05] LABS: Glucose Estimated Average 123 mg/dL (80-131); Hemoglobin A1C 5.9 % Hgb (4.8-6.0)
[2025-06-07 06:21] LABS: Basophils # (Auto) 0.0 Thou/mm3 (0.0-0.2); Basophils % (Auto) 0 % (0-2.5); Eosinophils # (Auto) 0.0 Thou/mm3 (0.0-0.5); Eosinophils % (Auto) 0 % (0-10); Hematocrit 35.6 % (36.0-46.0); Hemoglobin 11.8 g/dL (12.0-16.0); Immature Granulocytes Auto 0.04 Thou/mm3 (0.00-0.00); Lymphocytes # (Auto) 1.1 Thou/mm3 (1.0-4.8); Lymphocytes % (Auto) 9 % (10-50); Mean Corpuscular HGB Conc 33.1 g/dl (31.0-37.0); Mean Corpuscular Hemoglobin 30.5 pg (25.0-35.0); Mean Corpuscular Volume 92 fL (80-100); Monocytes # (Auto) 0.9 Thou/mm3 (0.0-0.8); Monocytes % (Auto) 7 % (0-12); Neutrophils # (Auto) 10.7 Thou/mm3 (1.8-7.7); Neutrophils % (Auto) 84 % (37-80); Nucleated Red Blood Cell # 0.00 Thou/mm3 (0.00-0.00); Nucleated Red Blood Cell % 0 /100 WBC (0); Platelet Count 267 Thou/mm3 (140-440); RDW Standard Deviation 45.1 fL (36.4-46.3); Red Blood Count 3.87 Miln/mm3 (4.00-5.20); White Blood Count 12.7 Thou/mm3 (3.6-11.0)
[2025-06-07 06:41] LABS: Anion Gap 11 (7-16); BUN/Creatinine Ratio 12 Ratio (12-20); Blood Urea Nitrogen 7 mg/dL (9-23); Calcium 8.6 mg/dL (8.3-10.6); Carbon Dioxide 24.1 mMol/L (20.0-31.0); Chloride 111 mMol/L (98-107); Creatinine (Component) 0.6 mg/dL (0.6-1.3); Estimated Creatinine Clearance 146.8 mL/min (>60); Glucose 178 mg/dL (74-106); Magnesium 2.2 mg/dL (1.6-2.6); Osmolality,Calculated 292 (275-295); Phosphorous 2.8 mg/dL (2.4-5.1); Potassium 3.6 mMol/L (3.4-5.1); Sodium 146 mMol/L (136-145); eGFR > 60 See Note
[2025-06-07] MEDS: PANTOPRAZOLE 40 MG TABLET PO (08:35)
[2025-06-07] MEDS: ENOXAPARIN SOD INJ 40 MG/0.4 ML SYRINGE SC (08:35)
--- NOTE | 2025-06-07 10:28 | PC.SS ---
1028-Pt is a 49 yo female who was admitted on 06/06 for acute complicated UTI. As per morning rounding meeting, pt is not ready for d/c and will stay. At this time, there is no d/c date.
[2025-06-07] MEDS: cefTRIAXone/D5w 2gm 2 GM/50 ML BAG IV (11:13)
[2025-06-07] MEDS: VANCOMYCIN/D5W 1,250 MG IVPB 250 ML 120 MG IV (11:13)
--- NOTE | 2025-06-07 12:10 | ESPR_ITS ---
<Statement entered by Everett Flores MD - 06/07/25 14:32> Senior Resident Attestation: I supervised/discussed management plan with international relations professor physician Dr. Landrum, and was involved in the care of this patient. I personally saw and examined the patient and discussed the assessment and plan with the entire medicine team, including my attending. I agree with the assessment and plan as documented. Patient was seen and examined at the bedside. She reports no new complaints. Her cefepime was changed to ceftriaxone 2 g daily. Cultures are pending. Will continue current management and monitor patient. Patient's care was discussed with attending physician, Dr. Edmonds. Everett Flores MD PGY-3. Documentation for date of: 06/07/25 Subjective Subjective Interval history: No overnight events. Afebrile. Evaluated at bedside. Upon further conversation with pt today, pt stated that she's wheelchair bound and she wears a diaper at home because she has no control over her bladder due to MS. Gonzales cath in place. Downgrade cefepime to rocephin 2g QD and vanco pharmacy to dose. Pending Bcx and Ucx. Exam Vital Signs Temp Pulse Resp BP Pulse Ox O2 Del Method O2 Flow Rate 97.7 F 80 18 121/78 96 Nasal Cannula 5 06/07/25 08:00 06/07/25 08:00 06/07/25 08:00 06/07/25 08:00 06/07/25 08:00 06/07/25 08:00 06/07/25 08:00 Narrative Exam General: Well appearing, well nourished, in no distress. Oriented x 3, normal mood and affect . Wheelchair bound at baseline Skin: Good turgor, no rash, unusual bruising or prominent lesions Heart: No cardiomegaly or thrills; regular rate and rhythm, no murmur or gallop Lungs: Clear to auscultation and percussion. No rales, wheeze, or rhonchi Abdomen: Bowel sounds normal, no tenderness, organomegaly, masses, or hernia Back: Spine normal without deformity or tenderness, no CVA tenderness Extremities: No amputations or deformities, cyanosis, edema or varicosities, peripheral pulses intact. Objective Labs 06/07/25 04:39 06/07/25 04:39 Labs: Laboratory Results - last 24 hr 06/07/25 04:39 WBC 12.7 H RBC 3.87 L Hgb 11.8 L Hct 35.6 L MCV 92 MCH 30.5 MCHC 33.1 RDW Std Deviation 45.1 Plt Count 267 D Neut % (Auto) 84 H Lymph % (Auto) 9 L Kimball % (Auto) 7 Eos % (Auto) 0 Baso % (Auto) 0 Neut # (Auto) 10.7 H Lymph # (Auto) 1.1 Kimball # (Auto) 0.9 H Eos # (Auto) 0.0 Baso # (Auto) 0.0 Immature Gran # (Auto) 0.04 H Absolute Nucleated RBC 0.00 Immature Gran % 0 Nucleated RBC % 0 Sodium 146 H Potassium 3.6 Chloride 111 H Carbon Dioxide 24.1 Anion Gap 11 BUN 7 L Creatinine 0.6 Estim Creat Clear Calc 146.8 eGFR > 60 BUN/Creatinine Ratio [address] Glu mg/dL 123 Hemoglobin A1c 5.9 Calculated Osmolality 292 Calcium 8.6 Phosphorus 2.8 Magnesium 2.2 Quality Measures Quality Measures VTE prophylaxis Assessment & Plan Assessment Current Active Medications: Generic Name Dose Route Start Last Admin Trade Name Freq PRN Reason Stop Dose Admin Acetaminophen 650 mg 06/06/25 04:12 Acetaminophen 325 Mg Tablet PO 07/06/25 04:11 Q6H PRN Fever >101.5 Acetaminophen 650 mg 06/06/25 04:12 Acetaminophen 325 Mg Tablet PO 07/06/25 04:11 Q6H PRN PAIN SCALE 1-3 (mild Hydrocodone Bitart/Acetaminophen 1 tab 06/06/25 04:12 Hydrocodone/Apap 5/325 Tablet PO 06/11/25 04:11 Q4HR PRN PAIN SCALE 4-6 (Moderate Baclofen 20 mg 06/07/25 06:00 06/07/25 05:12 Baclofen 10 Mg Tablet PO 07/07/25 05:59 20 mg TID FEMI Administration Enoxaparin Sodium 40 mg 06/06/25 09:00 06/07/25 08:35 Enoxaparin Sod Inj 40 Mg/0.4 Ml Syringe SC 06/20/25 08:59 40 mg QDAY FEMI Administration Sodium Chloride 1,000 mls @ 100 mls/hr 06/06/25 04:15 06/07/25 03:43 Ns IV 07/06/25 04:14 100 mls/hr .Q10H FEMI Administration Ceftriaxone Sodium/Dextrose 2 gm in 50 mls @ 100 mls/hr 06/07/25 10:30 06/07/25 11:13 Rocephin/D5w 2gm IV 06/14/25 10:19 100 mls/hr QDAY FEMI Administration Vancomycin HCl/Dextrose 250 mls @ 120 mls/hr 06/07/25 10:30 06/07/25 11:13 Vancomycin/D5w 1,250 Mg Ivpb IV 06/07/25 12:34 120 mls/hr X1 ONE Administration Vancomycin HCl 200 mls @ 120 mls/hr 06/07/25 22:00 Vancomycin/Water 1gm Ivpb IV 06/14/25 21:59 Q8HR FEMI Ondansetron HCl 4 mg 06/06/25 04:12 Ondansetron Inj 2 Mg/Ml Inj 2 Ml IVP 07/06/25 04:11 Q6H PRN NAUSEA OR VOMITING Protocol Pantoprazole Sodium 40 mg 06/06/25 09:00 06/07/25 08:35 Pantoprazole 40 Mg Tablet PO 07/06/25 08:59 40 mg QDAY FEMI Administration Pharmacy Consult 1 each 06/07/25 10:30 Vancomycin Pharmacy To Dose 1 Each Each IV 07/07/25 10:29 QDAY PRN CONSULT Sennosides 1 tab 06/06/25 04:12 Senna Tablet PO 07/06/25 04:11 QDAY PRN constipation Protocol Vortioxetine 20 mg 06/07/25 10:30 Vortioxetine 5 Mg Tablet (Non Formulary) PO 07/07/25 10:29 QDAY FEMI Plan 49 year-old female with multiple sclerosis (wheelchair-bound, chronic paraplegia, poor bladder control) and depression, presented with altered mental status likely secondary to complicated UTI with bladder wall thickening on CT, now back to baseline and improving on Rocephin 2g QD and Vanco pharmacy to dose. Pending Bcx and Ucx. #SIRS (4/), likely urinary source #Complicated Urinary Tract Infection #Hematuria #Infectious Encephalopathy (resolved) #Leukocytosis - downtrending Acute altered mental status at presentation, resolved after fluids, antipyretics and antibiotic initiation. SIRS positive with tachycardia, leukocytosis, fever 104.2F. Most likely urinary source given UA with pyuria, bacteriuria, hematuria, suprapubic tenderness. CT abd/pelvis: Urinary bladder wall thickening and pericystic inflammatory change. Gonzales was placed in ED for management, not present prior to arrival. Lactate 3.2 --> 1.2 Intiial WBC 8.4, increased to 14.0, downtrending now. Plan: - Downgrade Cefepime 2g to Rocephin 2g QD and vanco pharmacy to dose - Maintain MAP >65 mmHg; monitor for hypotension - Follow blood and urine cultures; narrow antibiotics per sensitivities. - Reassess daily for ongoing need for Gonzales catheter. (pt stated she has poor bladder control due to MS, consider leaving it in place until discharge) - Monitor for urinary retention after Gonzales removal. - Antipyretics PRN. - Consider ID consult if no improvement within 48h. #Prediabetes #Hyperglycemia Plan - hemoglobin A1c 5.9 - Continue to monitor and check blood glucose. - diet and lifestyle modification - outpt PCP followup #Multiple sclerosis Chronic medical problem Wheelchair-bound with baseline paraplegia (RUE 1/, LUE 4/). No flares in past 5 years. Plan: - Ocrevus infusion due next week. - Monitor for new deficits; neuro consult if any change. #Localized edema Chronic BLE edema, likely due to immobility +/- venous insufficiency. Plan: - Elevate legs. - Monitor fluid status. - Consider compression socks #Depression Chronic medical problem Plan: - Continue home medication: Trintellix 20mg daily. Health Maintenance: Disposition: Admit to medicine, telemetry Feeding: Regular diet as tolerated Thromboprophylaxis: Enoxaparin 40 mg SC daily GI prophylaxis: PPI Code Status: Full Case discussed with my senior resident Dr. Flores Case discussed with my attending Dr. Grey Landrum, DO PGY 1 Attending Provider Attestation/Addendum I have examined the patient, reviewed labs and imaging findings, discussed the case with the resident(s), and reviewed entered orders. I agree with the plan of care as outlined in this note, with these additional summaries/recommendations: Patient seen at bedside. No acute overnight events. She reports improvement in her urinary symptoms. Patient admitted for sepsis secondary to urinary tract infection with endorgan damage of encephalopathy. Lactic acidosis now resolved. Encephalopathy resolved. Patient receiving IV antibiotics and ur cx pending. Cultures preliminarily showing GPC's and GNR's. GPC likely contamination. Add vancomycin to regimen for now. Increas rocephin to 2gm QD. Continue Tylenol as needed for fever. Patient also has history of multiple sclerosis and CT head did reveal multiple abnormal low-density areas in the parietal lobes although patient does not appear to be in MS exacerbation at this time. She denies any deficits and mental status is back to baseline and no steroids needed at this time. Continue outpatient ocrevus for MS management and trintellix. Patient updated on the plan and agreement. All questions answered to satisfaction. Please see residents note for additional details and management. Dr. Grey MD
[2025-06-07] MEDS: VORTIOXETINE 5 MG TABLET (NON FORMULARY) 20 MG PO (14:16)
[2025-06-07] MEDS: VANCOMYCIN/WATER 1GM IVPB 200 ML IV (21:08)
[2025-06-08] VITALS (7 sets, daily range): BP systolic 140–160; BP diastolic 81–98; PULSE 63–91; RESP 16–94; TEMP 36.1–36.8; O2SAT 92–96
[2025-06-08] MEDS: VANCOMYCIN/WATER 1GM IVPB 200 ML IV (05:52)
[2025-06-08 07:03] LABS: Basophils # (Auto) 0.1 Thou/mm3 (0.0-0.2); Basophils % (Auto) 1 % (0-2.5); Eosinophils # (Auto) 0.1 Thou/mm3 (0.0-0.5); Eosinophils % (Auto) 1 % (0-10); Hematocrit 36.8 % (36.0-46.0); Hemoglobin 12.8 g/dL (12.0-16.0); Immature Granulocytes Auto 0.02 Thou/mm3 (0.00-0.00); Lymphocytes # (Auto) 2.1 Thou/mm3 (1.0-4.8); Lymphocytes % (Auto) 23 % (10-50); Mean Corpuscular HGB Conc 34.8 g/dl (31.0-37.0); Mean Corpuscular Hemoglobin 31.1 pg (25.0-35.0); Mean Corpuscular Volume 90 fL (80-100); Monocytes # (Auto) 0.7 Thou/mm3 (0.0-0.8); Monocytes % (Auto) 8 % (0-12); Neutrophils # (Auto) 6.1 Thou/mm3 (1.8-7.7); Neutrophils % (Auto) 67 % (37-80); Nucleated Red Blood Cell # 0.00 Thou/mm3 (0.00-0.00); Nucleated Red Blood Cell % 0 /100 WBC (0); Platelet Count 267 Thou/mm3 (140-440); RDW Standard Deviation 43.7 fL (36.4-46.3); Red Blood Count 4.11 Miln/mm3 (4.00-5.20); White Blood Count 9.2 Thou/mm3 (3.6-11.0)
[2025-06-08 07:19] LABS: Anion Gap 10 (7-16); BUN/Creatinine Ratio 12 Ratio (12-20); Blood Urea Nitrogen 6 mg/dL (9-23); Calcium 8.7 mg/dL (8.3-10.6); Carbon Dioxide 27.3 mMol/L (20.0-31.0); Chloride 107 mMol/L (98-107); Creatinine (Component) 0.5 mg/dL (0.6-1.3); Estimated Creatinine Clearance 176.2 mL/min (>60); Glucose 112 mg/dL (74-106); Magnesium 1.7 mg/dL (1.6-2.6); Osmolality,Calculated 285 (275-295); Phosphorous 2.8 mg/dL (2.4-5.1); Potassium 3.6 mMol/L (3.4-5.1); Sodium 144 mMol/L (136-145); eGFR > 60 See Note
[2025-06-08] MEDS: VORTIOXETINE 5 MG TABLET (NON FORMULARY) 20 MG PO (09:30)
[2025-06-08] MEDS: PANTOPRAZOLE 40 MG TABLET PO (09:30)
[2025-06-08] MEDS: ENOXAPARIN SOD INJ 40 MG/0.4 ML SYRINGE SC (09:30)
[2025-06-08] MEDS: cefTRIAXone/D5w 2gm 2 GM/50 ML BAG IV (09:30)
--- NOTE | 2025-06-08 12:28 | PC.SS ---
1228-Per morning rounding, pt is ready for d/c and will d/c home. Pts family is aware.
[2025-06-08 14:12] LABS: Vancomycin,Trough 12.1 mcg/mL (5.0-10.0)
--- NOTE | 2025-06-08 15:43 | PC.NURSE ---
1500 pt is discharged, waiting for her to pick her up
--- NOTE | 2025-06-08 18:53 | ESDS_ITS ---
<Statement entered by Lucero Nieves DO - 06/09/25 16:44> I, Lucero Nieves DO, attest that I was physically present for the hernandes portions of the service and evaluated the patient with the resident and I reviewed and discussed the case with the resident and agree with the resident's findings and plans of care as documented above <Statement entered by Micky Cheatham MD - 06/08/25 20:01> Patient was examined and case was reviewed with team including attending physician. Note reviewed, I agree with most of its contents and agree with the patient's care as documented by Dr. Gorge Cheatham MD PGY-2 Planned Discharge Date 06/08/25 DS: Providers Provider Date of admission: 06/06/25 04:08 Primary care physician: Josy Killian PA-C Admitting Provider: Harley Lindsay MD Attending Provider on Admission: Ja Edmonds MD Attending Provider on DC: Lucero Nieves DO Discharging Provider: Vince Pennington DO Anticipated date of discharge: 06/08/25 DS: Diagnosis Problem List Completed Was Problem List Reviewed/Reconciled?: Yes Hospital Course Hospital Course Hospital course: 49-year-old female with history of multiple sclerosis (wheelchair-bound, chronic paraplegia, poor bladder control) and depression presented with acute altered mental status, high fever, vomiting, and weakness. Workup revealed complicated urinary tract infection with bladder wall thickening on CT. She met criteria for sepsis with organ dysfunction (encephalopathy) and was treated with IV antibiotics, later narrowed based on cultures. Reddy catheter was placed. Mental status returned to baseline after fluids, antipyretics, and antibiotics. No evidence of multiple sclerosis flare was noted. Patient tolerated oral intake, remained hemodynamically stable and reddy catheter was removed. Patient is medically and physically stable for discharge. Diagnosis #Sepsis secondary to complicated urinary tract infection #Infectious encephalopathy #Multiple sclerosis with chronic paraplegia #Hematuria, likely secondary to urinary tract infection #Leukocytosis #Chronic bilateral lower extremity edema #Depression #Dehydration #Hyperglycemia Discharge Plan: Follow up with primary care physician within 1 week of discharge. You have been prescribed augmentin which is an antibiotic please take this medication as prescribed and complete the whole course. Should your symptoms recur or worsen patient is instructed to return to the ED. Case discussed with my senior resident Dr. Anthony Cheatham and my attending . Vince Pennington, DO Status at Discharge Overall status at discharge: patient is back to baseline Time Spent with Patient Time attestation: Total time spent providing and/or coordinating discharge services: Time spent: Greater than 30 minutes Exam Vital Signs Temp Pulse Resp BP Pulse Ox O2 Del Method O2 Flow Rate 97.3 F 87 18 147/95 H 94 L Room Air 5 06/08/25 16:00 06/08/25 16:00 06/08/25 16:00 06/08/25 16:00 06/08/25 16:06/08/25 16:00 06/07/25 08:00 Narrative Exam Physical Exam: General: Well appearing, well nourished, in no distress. Oriented x 3, normal mood and affect . Wheelchair bound at baseline Skin: Good turgor, no rash, unusual bruising or prominent lesions Heart: No cardiomegaly or thrills; regular rate and rhythm, no murmur or gallop Lungs: Clear to auscultation and percussion. No rales, wheeze, or rhonchi Abdomen: Bowel sounds normal, no tenderness, organomegaly, masses, or hernia Back: Spine normal without deformity or tenderness, no CVA tenderness Extremities: No amputations or deformities, cyanosis, edema or varicosities, peripheral pulses intact. Discharge Plan Plan Patient Disposition: HOME (Self Care) Care Plan Goals: Follow up with primary care physician within 1 week of discharge You have been prescribed augmentin which is an antibiotic please take this medication as prescribed and complete the whole course Should your symptoms recur or worsen patient is instructed to return to the ED. Prescriptions/Referrals Prescriptions/Med Rec: New amoxicillin-pot clavulanate 875-125 mg tablet 1 tab PO BID 5 Days Qty: 10 0RF Continued Trintellix 20 MG tablet 20 mg PO QDAY Qty: 0 Ocrevus 30 mg/mL solution 300 mg IV .[id number] baclofen 10 mg tablet 20 mg PO TID vitamin D3-vitamin K2 125 mcg (5,000 unit)-100 mcg capsule 1 cap PO .QD Referrals: Josy Killian PA-C [Primary Care Provider] - Patient/Caregiver Discharge Instructions Education Materials: Urinary Tract Infections in Women Print Language: Kazakh Stand Alone Forms: Niya Award Info., Patient Portal Info Letter Discharge Order Discharge Orders: Discharge (Routine); Ordered 06/08/25 Ordered By: Micky Cheatham Quality Discharge Quality Measures none
== END 2025-06-08 16:50 | disposition home or self-care (01) | DRG 871 ==
LOC: SERX 04:17 → SERHOLD 04:37 → S3NX 14:28
PROVIDERS: Admitting Provider Student in an Organized Health Care Education/Training Program; Emergency Provider Emergency Medicine; PCP Physician Assistant; Visit Provider Student in an Organized Health Care Education/Training Program
DX: A41.9 Sepsis, unspecified organism (principal); G92.8 Other toxic encephalopathy; N39.0 Urinary tract infection, site not specified; G82.20 Paraplegia, unspecified; G93.49 Other encephalopathy; E87.20 Acidosis, unspecified; Z68.41 Body mass index [BMI] 40.0-44.9, adult; G35 Multiple sclerosis; R73.03 Prediabetes; F32.A Depression, unspecified; R31.9 Hematuria, unspecified; I87.2 Venous insufficiency (chronic) (peripheral); R73.9 Hyperglycemia, unspecified; R60.0 Localized edema; E86.0 Dehydration; E66.9 Obesity, unspecified; Z99.3 Dependence on wheelchair; Z88.2 Allergy status to sulfonamides
CPT/HCPCS: 36415; 70450; 71045; 71250; 74176; 80048; 80053; 80202; 81001; 81025; 82140; 82248; 83036; 83605; 83690; 83735; 83880; 84100; 84145; 84439; 84443; 84484; 84703; 85025; 85652; 86140; 87040; 87077; 87086; 87186; 87400; 87811; 93005; 93225; 96361; 96365; 96366; 96375; 99284; J0131; J0692; J0696; J1650; J1885; J2270; J2405; J2919; J3370; J3373; J3375; J7030; J7050; J7999; A9270